=== PATIENT | male | born 1980 | race Caucasian/White ===

== ENCOUNTER 2017-02-19 16:47 | Emergency (ER) | payer OTHER ==
[~2017-02-19] VITALS: Ht 167.6 cm; Wt 84.1 kg
[~2017-02-19 16:47] MED LIST: ACET-1311 PO; ATEN-173 PO; CALC0.5C PO; CALC667C PO; ENAL1TAB29 PO; FURO-85 PO; KETO2CRE14 TOP; ONDA4TAB9 PO; PANT40TA2 PO
[2017-02-19 16:56] VITALS: Ht 167.6 cm; Wt 84.1 kg
[2017-02-19] MEDS ORDERED: ONDANSETRON INJ 2 MG/ML 2 ML VIAL IV STA (17:14)
[2017-02-19] MEDS ORDERED: LORAZEPAM 2 MG/ML 1 ML VIAL IV STA (17:14)
[2017-02-19] MEDS ORDERED: SODIUM CHLORIDE 0.9% 1000ML 1,000 ML IV ONE (17:15)
[2017-02-19 17:39] LABS: HEMATOCRIT 25.2 % (42-52); IG% 0.8 %; LYMPH % 0.9 %; LYMPH ABS # 0.09 K/uL (1.2-3.4); MEAN CELL VOLUME 86.6 fL (80-100); MEAN CORPUSCULAR HEMOGLOBIN 29.2 pg (25-34); MEAN CORPUSCULAR HGB CONC 33.7 g/dl (32-36); MEAN PLATELET VOLUME 9.3 fL (7.4-10.4); MONO % 1.9 %; NEUT % 96.4 %; PLATELET COUNT 255 K/uL (130-400); RED BLOOD COUNT 2.91 M/uL (4.7-6.1); WHITE BLOOD COUNT 9.58 K/uL (4.8-10.8)
[2017-02-19] MEDS ORDERED: VLC450 PO (17:50)
[2017-02-19] MEDS ORDERED: MYCO250C26 PO (17:50)
[2017-02-19] MEDS ORDERED: TACR1CAP5 PO (17:50)
[2017-02-19] MEDS ORDERED: PRED-301 PO (17:50)
[2017-02-19] MEDS ORDERED: ASPI81TA28 PO (17:50)
[2017-02-19] MEDS ORDERED: PRLSR20 PO (17:50)
[2017-02-19] MEDS ORDERED: ONDA4TAB10 SL ×2 (17:50→18:55)
[2017-02-19] MEDS ORDERED: SULF400T7 PO (17:52)
[2017-02-19 17:56] LABS: ALT/SGPT 17 U/L (12-78); AST/SGOT 13 U/L (15-37); BLOOD UREA NITROGEN 21 mg/dl (7-18); BUN/CREATININE RATIO 13.3 (10-20); CALCIUM 8.4 mg/dl (8.5-10.1); CARBON DIOXIDE 26 mmol/L (21-32); CHLORIDE 105 mmol/L (98-107); CREATININE 1.56 mg/dl (0.60-1.40); GLUCOSE 159 mg/dl (70-99); POTASSIUM 4.3 mmol/L (3.5-5.1); SODIUM 135 mmol/L (136-145)
[2017-02-19 17:59] LABS: ALKALINE PHOSPHATASE 47 U/L (45-117)
[2017-02-19 18:08] LABS: URINE APPEARANCE CLEAR (CLEAR); URINE BILIRUBIN NEG (NEG); URINE COLOR YELLOW; URINE EPITHELIAL CELL AUTO 0-5 /lpf (0-5); URINE NITRITE NEG (NEG); URINE PH 7.5 (4.5-7.5); UROBILINOGEN NEG (NEG)
[2017-02-19 18:29] LABS: MANUAL MICROSCOPIC REQUIRED? NO; REVIEW REQ? NO
[2017-02-19 19:15] VITALS: BP 128/78; PULSE 98; TEMP 36.7; O2SAT 100
[2017-02-19] MEDS ORDERED: CITA10TA4 PO (19:25)
[2017-02-19] MEDS ORDERED: OXYC1TAB3 PO (19:25)
[2017-02-19] MEDS ORDERED: DOCU-94 PO (19:25)
[2017-02-19] MEDS ORDERED: ZNTT/150 PO (19:25)
[2017-02-19] MEDS ORDERED: LPT/20 PO (19:25)
[2017-02-19 19:44] LABS: ANISOCYTOSIS PRESENT; COMPLETE YES; HYPERSEGMENTED POLYS 1+; POLYCHROMASIA 1+
--- NOTE | 2017-02-19 19:57 | EMERGENCY ROOM VISIT NOTE ---
ED Visit Note First contact with patient: 17:01 Chief Complaint: Chills, nausea and diarrhea. History of Present Illness: Mr. Trevizo is a 36-year-old male who ambulates into the ED accompanied by his complaining of chills, nausea and diarrhea. Historically patient is 5 days status post kidney transplant from [facility]. Patient reports over the last few hours he has become nauseated but has not vomited, he has been having chills/body shakes and he has had 2 episodes of soft stools. Additionally his reports he's been very anxious. Patient reports his symptoms started acutely. He has not taken any medications for his symptoms prior to arrival at the hospital except for his anxiety which she took Celexa. He has not identified any aggravating or alleviating factors related to the symptoms. He denies any associated fevers, skin eruptions, skin color changes, chest pain , shortness of breath, decreased appetite, bloody stools, watery stools. Review of Systems: As noted above in history of present illness. All body systems were reviewed and found to be negative as noted above. Past Medical History: As noted above, hypertension, anxiety and depression. Current Medications: OxyIR, Colace, Celexa, Lipitor, Zantac, Allopurinol, Prograf, CellCept, prednisone, aspirin, Diflucan, Bactrim, Prilosec, Valcyte. Allergies to Medications: Patient denies. Social History: Patient is currently on disability; he feels safe in his home environment; in the past he used tobacco; he denies alcohol use. Physical Examination: Vital Signs: Date Time Temp Pulse Resp B/P (MAP) Pulse Ox O2 Delivery O2 Flow Rate FiO2 02/19/17 19:15 36.7 98 16 128/78 100 02/19/17 16:56 36.7 105 18 132/82 98 Room Air GENERAL: 36-year-old male in mild to moderate distress due to symptoms, nontoxic -appearing, afebrile and hemodynamically stable. NEUROLOGICAL: Awake, alert and oriented to person, place and time. Answering questions appropriately and following commands. Normal gait. Good hand eye coordination. SKIN: Warm, dry and pink. Abdomen: Surgical scar is clean dry and intact. No drainage or signs of infection. HEENT: Atraumatic and normocephalic. PERRLA. Sclera white and conjunctiva pink. Airway is patent. Speech normal. Trachea midline. No jugular venous distention. THORAX: Lungs sounds are clear to auscultation and equal bilaterally with symmetrical chest wall. No wheezing, rales or rhonchi. HEART: Regular rate and rhythm. No gallops, rubs or murmurs are appreciated. ABDOMEN: Flat, soft and nontender. Mild incisional tenderness. Decreased bowel sounds in all quadrants. No guarding, rigidity or organomegaly. EXTREMITIES: Moves all extremities well on command and with purpose. All distal neurovascular statuses are intact and equal bilaterally. Surgical stockings in place. ED Course: Patient is assessed as noted above. Patient's medication list was reviewed. Laboratory Testing: Test 02/19/17 17:25 02/19/17 17:32 Range/Units White Blood Count 9.58 4.8-10.8 K/uL Red Blood Count 2.91 4.7-6.1 M/uL Hemoglobin 8.5 14.0-18.0 g/dL Hematocrit 25.2 42-52 % Mean Corpuscular Volume 86.6 80-100 fL Mean Corpuscular Hemoglobin 29.2 25-34 pg Mean Corpuscular Hemoglobin Concent 33.7 32-36 g/dl Platelet Count 255 130-400 K/uL Mean Platelet Volume 9.3 7.4-10.4 fL Neutrophils (%) (Auto) 96.4 % Lymphocytes (%) (Auto) 0.9 % Monocytes (%) (Auto) 1.9 % Eosinophils (%) (Auto) 0.0 % Basophils (%) (Auto) 0.0 % Neutrophils # (Auto) 9.23 1.4-6.5 K/uL Lymphocytes # (Auto) 0.09 1.2-3.4 K/uL Monocytes # (Auto) 0.18 0.11-0.59 K/uL Eosinophils # (Auto) 0.00 0-0.5 K/uL Basophils # (Auto) 0.00 0-0.2 K/uL RDW Standard Deviation 42.1 36.4-46.3 fL RDW Coefficient of Variation 13.3 11.5-14.5 % Immature Granulocyte % (Auto) 0.8 % Immature Granulocyte # (Auto) 0.08 0.00-0.02 K/uL Hypersegmented Polys 1+ Polychromasia 1+ Anisocytosis PRESENT Sodium Level 135 136-145 mmol/L Potassium Level 4.3 3.5-5.1 mmol/L Chloride Level 105 98-107 mmol/L Carbon Dioxide Level 26 21-32 mmol/L Anion Gap 4.0 3-11 mmol/L Blood Urea Nitrogen 21 7-18 mg/dl Creatinine 1.56 0.60-1.40 mg/dl Est Creatinine Clear Calc Drug Dose 65.3 ml/min Estimated GFR () 64.4 Estimated GFR (Non- 55.5 BUN/Creatinine Ratio 13.3 10-20 Random Glucose 159 70-99 mg/dl Calcium Level 8.4 8.5-10.1 mg/dl Total Bilirubin 0.3 0.2-1 mg/dl Direct Bilirubin < 0.1 0-0.2 mg/dl Aspartate Amino Transf (AST/SGOT) 13 15-37 U/L Alanine Aminotransferase (ALT/SGPT) 17 12-78 U/L Alkaline Phosphatase 47 45-117 U/L Total Protein 6.5 6.4-8.2 gm/dl Albumin 3.2 3.4-5.0 gm/dl Urine Color YELLOW Urine Appearance CLEAR CLEAR Urine pH 7.5 4.5-7.5 Urine Specific [place] 1.010 1.000-1.030 Urine Protein NEG NEG Urine Glucose (UA) TRACE NEG Urine Ketones NEG NEG Urine Occult Blood 1+ NEG Urine Nitrite NEG NEG Urine Bilirubin NEG NEG Urine Urobilinogen NEG NEG Urine Leukocyte Esterase TRACE NEG Urine WBC (Auto) 1-5 0-5 /hpf Urine RBC (Auto) 5-10 0-4 /hpf Urine Hyaline Casts (Auto) 0 0-5 /lpf Urine Epithelial Cells (Auto) 0-5 0-5 /lpf Urine Bacteria (Auto) NEG NEG Patient was initially hydrated with normal saline and received 4 mg of Zofran IV for his nausea and 0.5 mg of Ativan IV for his anxiety. Patient's case was reviewed with Dr. Natarajan; we agreed on diagnostic approach, treatment, disposition and plan. Patient's case was consulted with Ms. Halie Emanuel, [facility] Kidney Policy Director; she recommended follow-up tomorrow at [facility]. I did question if I could prescribe Zofran for his nausea and she agreed. Patient was educated about today's findings and instructed on her treatment plan ; he verbalized understanding and agreement with this plan. Additionally: It should be noted patient's primary language was Urdu and then on line translation service was used for patient's care. Clinical Impression: Nausea. Anemia. Status post kidney transplant. Decision-Making: Initially my differential diagnosis I considered postoperative infection, urinary tract infection, anxiety, postoperative bleeding and other causes. Disposition: Patient discharged home in stable condition accompanied by his ; prior to departure he was reassessed and subjectively reported he was feeling much better. He reported he was no longer nauseated and had no additional episodes of shaking/chills. Plan: Patient was encouraged to continue current medications as prescribed. Patient was prescribed Zofran 4 mg every 6 hours as needed for nausea/vomiting. Patient was encouraged to stay well-hydrated. Patient was encouraged to go to the kidney transplant clinic at [facility] tomorrow for follow-up care and treatment. Patient is encouraged return ED for worsening nausea, actual vomiting, fevers, worsening chills or any new/concerning symptoms.
[2017-02-19] MEDS ORDERED: ALLO100T PO (20:48)
== END 2017-02-19 19:16 | disposition home or self-care (01) ==
LOC: C.EDB 16:48 → C.EDC 19:16
DX: R11.0 Nausea (principal); D64.9 Anemia, unspecified; Z94.0 Kidney transplant status; I10 Essential (primary) hypertension; F41.9 Anxiety disorder, unspecified; F32.9 Major depressive disorder, single episode, unspecified; Z79.82 Long term (current) use of aspirin; Z79.899 Other long term (current) drug therapy; Z87.891 Personal history of nicotine dependence

== ENCOUNTER 2017-02-24 10:10 | Emergency (ER) | payer OTHER ==
[~2017-02-24] VITALS: Ht 167.6 cm; Wt 82.3 kg
[~2017-02-24 10:10] MED LIST changes: -ACET-1311 PO; +ALLO100T PO; +ASPI81TA28 PO; -ATEN-173 PO; -CALC0.5C PO; -CALC667C PO; +CITA10TA4 PO; +DOCU-94 PO; -ENAL1TAB29 PO; -FURO-85 PO; -KETO2CRE14 TOP; +LPT20 PO; +MYCO250C26 PO; +ONDA4TAB10 SL; -ONDA4TAB9 PO; +OXYC-90 PO; -PANT40TA2 PO; +PRED-301 PO; +PRLSR20 PO; +RANI150T85 PO; +SULF400T7 PO; +TACR1CAP5 PO; +VLC450 PO
[2017-02-24 10:16] VITALS: TEMP 37.5; Ht 167.6 cm; Wt 82.3 kg
--- NOTE | 2017-02-24 11:12 | EMERGENCY ROOM VISIT NOTE ---
History Report prepared by Lizzy: Deisy Collier Under the Supervision of: Dr. Wes Jacome M.D. First contact with patient: 10:56 Chief Complaint: ILLNESS Stated Complaint: COLD History of Present Illness The patient is a 36 year old male who presents to the Emergency Room with complaints of a cold beginning last night. Per his , the patient has had a productive cough but no fever. His states that one of the patient's daughters at home has the flu. Per his , the patient had a kidney transplant done in [place] on February 13. The patient reports that he has been able to make urine. His states that the patient took Robitussin for his cough. Source of History: patient, spouse/significant other () Onset: last night Position: other (global) Quality: other (cold) Associated Symptoms: + cough (productive), No fevers Review of Systems See HPI for pertinent positives & negatives. A total of 10 systems reviewed and were otherwise negative. Past Medical & Surgical Medical Problems: (1) Chest pain (2) HTN (hypertension) (3) Kidney disease, chronic, stage V (end stage, EGFR < 15 ml/min) Surgical Problems: (1) Kidney transplanted Family History Heart disease Social History Smoking Status: Never Smoker Marital Status: in relationship Housing Status: lives with family Occupation Status: disabled Current/Historical Medications Scheduled Allopurinol (Zyloprim), 200 MG PO DAILY Aspirin (Aspirin Ec), 81 MG PO DAILY Atorvastatin (Atorvastatin Calcium), 20 MG PO DAILY Citalopram Hydrobromide (Citalopram Hydrobromide), 10 MG PO DAILY Docusate Sodium (Colace), 100 MG PO BID Mycophenolate Mofetil (Cellcept), 1,000 MG PO BID Omeprazole (Prilosec), 20 MG PO DAILY Oseltamivir (Tamiflu), 75 MG PO BID Prednisone (Prednisone), 20 MG PO DAILY Sulfamethoxazole-Trimethoprim (Bactrim 400MG/80MG), 1 TAB PO 3XWK Tacrolimus (Prograf), 5 MG PO BID Valganciclovir (Valcyte), 450 MG PO DAILY Scheduled PRN Ondasetron Odt (Zofran Odt), 4 MG SL UD PRN for Nausea Ondasetron Odt (Zofran Odt), 4 MG SL Q6H PRN for Nausea or Vomiting Oxycodone Ir (Roxicodone Ir), 5 MG PO Q4H PRN for Pain Ranitidine (Zantac), 150 MG PO BID PRN for Heartburn Allergies Coded Allergies: No Known Allergies (Unverified , 04/04/15) Physical Exam Vital Signs Date Time Temp Pulse Resp B/P (MAP) Pulse Ox O2 Delivery O2 Flow Rate FiO2 02/24/17 14:39 94 17 125/86 100 02/24/17 13:31 137/81 02/24/17 13:15 99 13 99 Room Air 02/24/17 13:01 129/78 02/24/17 12:45 93 15 99 Room Air 02/24/17 12:40 91 12 100 Room Air 02/24/17 12:39 96 02/24/17 12:34 132/83 02/24/17 11:55 101 18 100/71 100 Room Air 02/24/17 10:16 37.5 119 18 101/78 100 Room Air Physical Exam GENERAL: Patient is in no acute distress. HEENT: No acute trauma, normocephalic atraumatic, mucous membranes moist, no nasal congestion, no scleral icterus. No throat erythema or exudate. NECK: No stridor, no adenopathy, no meningismus, trachea is midline. LUNGS: Clear to auscultation bilaterally, no wheeze, no rhonchi, breath sounds equal. HEART: Mildly tachycardic, no murmurs, normal rhythm. ABDOMEN: Soft, nontender, bowel sounds positive, no hernias, no peritonitis. Surgical incision is healing well without signs of infection. EXTREMITIES: No cyanosis or edema, full range of motion of all the joints without pain or difficulty, no signs for acute trauma. NEUROLOGIC: Oriented x 3, no acute motor or sensory deficits, no focal weakness. SKIN: No rash, no jaundice, no diaphoresis. Medical Decision & Procedures ER Provider Diagnostic Interpretation: Radiology results as stated below per my review and radiologist interpretation: CHEST ONE VIEW PORTABLE CLINICAL HISTORY: Fever, sepsis COMPARISON STUDY: October 25, 2015 FINDINGS: The cardiac and mediastinal contours are normal. There is no focal pulmonary consolidation. There is no failure. There is no pleural effusion. The left-sided double lumen central venous catheter has been removed.[ IMPRESSION: No active disease in the chest. Electronically signed by: Etienne Cordero M.D. 02/24/2017 11:53 AM Dictated Date/Time: 02/24/2017 11:52 AM Laboratory Results 02/24/17 11:37 Red Blood Count 2.94, Mean Corpuscular Volume 89.1, Mean Corpuscular Hemoglobin 28.9, Mean Corpuscular Hemoglobin Concent 32.4, Mean Platelet Volume 8.7, Neutrophils (%) (Auto) 95.2, Lymphocytes (%) (Auto) 1.7, Monocytes (%) (Auto) 1.9, Eosinophils (%) (Auto) 0.1, Basophils (%) (Auto) 0.1, Neutrophils # (Auto) 14.86, Lymphocytes # (Auto) 0.26, Monocytes # (Auto) 0.30, Eosinophils # (Auto) 0.01, Basophils # (Auto) 0.01 02/24/17 11:37 Test 02/24/17 11:37 02/24/17 11:50 02/24/17 13:08 White Blood Count 15.60 K/uL (4.8-10.8) Red Blood Count 2.94 M/uL (4.7-6.1) Hemoglobin 8.5 g/dL (14.0-18.0) Hematocrit 26.2 % (42-52) Mean Corpuscular Volume 89.1 fL (80-100) Mean Corpuscular Hemoglobin 28.9 pg (25-34) Mean Corpuscular Hemoglobin Concent 32.4 g/dl (32-36) Platelet Count 436 K/uL (130-400) Mean Platelet Volume 8.7 fL (7.4-10.4) Neutrophils (%) (Auto) 95.2 % Lymphocytes (%) (Auto) 1.7 % Monocytes (%) (Auto) 1.9 % Eosinophils (%) (Auto) 0.1 % Basophils (%) (Auto) 0.1 % Neutrophils # (Auto) 14.86 K/uL (1.4-6.5) Lymphocytes # (Auto) 0.26 K/uL (1.2-3.4) Monocytes # (Auto) 0.30 K/uL (0.11-0.59) Eosinophils # (Auto) 0.01 K/uL (0-0.5) Basophils # (Auto) 0.01 K/uL (0-0.2) RDW Standard Deviation 47.7 fL (36.4-46.3) RDW Coefficient of Variation 14.9 % (11.5-14.5) Immature Granulocyte % (Auto) 1.0 % Immature Granulocyte # (Auto) 0.16 K/uL (0.00-0.02) Nucleated RBC Absolute Count (auto) 0.02 K/uL (0-0) Nucleated Red Blood Cells % 0.2 % Anion Gap 7.0 mmol/L (3-11) Est Creatinine Clear Calc Drug Dose 61.5 ml/min Estimated GFR () 60.6 Estimated GFR (Non- 52.3 BUN/Creatinine Ratio 12.8 (10-20) Calcium Level 8.4 mg/dl (8.5-10.1) Total Bilirubin 0.4 mg/dl (0.2-1) Aspartate Amino Transf (AST/SGOT) 8 U/L (15-37) Alanine Aminotransferase (ALT/SGPT) 14 U/L (12-78) Alkaline Phosphatase 53 U/L (45-117) Total Protein 6.5 gm/dl (6.4-8.2) Albumin 3.3 gm/dl (3.4-5.0) Globulin 3.2 gm/dl (2.5-4.0) Albumin/Globulin Ratio 1.0 (0.9-2) Lactic Acid Level 1.1 mmol/L (0.4-2.0) Influenza Type A (RT-PCR) POS for Influ A (NEG) Influenza Type B (RT-PCR) Neg for Influ B (NEG) Laboratory results reviewed by me. Medications Administered Medications (Trade) Dose Ordered Sig/Beny Route Start Time Stop Time Status Last Admin Dose Admin Acetaminophen (Tylenol Tab) 1,000 mg NOW STAT PO 02/24/17 11:26 02/24/17 11:28 DC 02/24/17 11:46 1,000 MG Sodium Chloride 500 ml @ 999 mls/hr Q31M STAT IV 02/24/17 11:26 02/24/17 11:56 DC 02/24/17 11:37 999 MLS/HR Sodium Chloride 500 ml @ 999 mls/hr Q31M STAT IV 02/24/17 12:34 02/24/17 13:04 DC 02/24/17 12:41 999 MLS/HR Oseltamivir Phosphate (Tamiflu Cap) 75 mg NOW STAT PO 02/24/17 13:02 02/24/17 13:03 DC 02/24/17 13:23 75 MG Sodium Chloride 500 ml @ 999 mls/hr Q31M STAT IV 02/24/17 13:49 02/24/17 14:19 DC 02/24/17 13:55 999 MLS/HR ECG Indication: weakness Rate (beats per minute): 88 Rhythm: normal sinus Findings: no acute ischemic change, no ectopy ED Course 1120: The patient was evaluated in room B11B. A complete history and physical exam was performed. 1126: Ordered Sodium Chloride 500 ml @ 999 mls/hr IV, Tylenol Tab 1,000 mg PO. 1230: The patient had a coughing episode then passed out. An ECG was then taken. 1259: I spoke to Dr. Malcolm. He stated that Tamiflu would be fine for the patient and that he can go home if he continues to do well. If not, the patient can stay at our facility. 1302: Ordered Tamiflu Cap 75 mg PO. 1349: Ordered Sodium Chloride 500 ml @ 999 mls/hr IV. 1420: Reevaluated the patient. Discussed results and discharge instructions: He verbalized understanding and agreement. I did talk with the patient about potentially staying in the hospital but he states that he feels well enough to go home. The patient is ready for discharge. Medical Decision The patient is a 36 year old male who presents to the ED with complaints of cold symptoms. Differential diagnoses considered include pneumonia or bronchitis, influenza or flu-like illness, renal failure, immunocompromise, UTI , and sepsis. There is a moderate leukocytosis at 15,000, this could be consistent with infection. The patient is anemic but this is baseline looking back at previous testing. There is some mild renal insufficiency, this is baseline though looking back at previous testing. There was no significant electrolyte abnormality or hepatitis. Chest film did not show pneumonia or CHF. Influenza testing was positive. The patient presents with cough and congestion. He has no urinary complaints- he has been making an adequate amount of urine. He received IV saline, oral Tylenol and oral Tamiflu. The patient had an episode where he was coughing and passed out. An EKG was done after the syncopal spell showing a normal sinus rhythm, no ischemia or dysrhythmia. I suspect he suffered cough syncope. The patient looks well, he feels improved since being hydrated. I talked with the transplant center at [facility]. They felt the patient could be discharged. Tamiflu will be prescribed. The patient was encouraged to stay hydrated and to rest. If he is worsening, he should return for reassessment. I did discuss a hospital stay with him, he does not want to be hospitalized. Medication Reconcilliation Current Medication List: was personally reviewed by me Blood Pressure Screening Patient's blood pressure: Normal blood pressure Consults Time Called: 1230 Consulting Physician: Dr. Malcolm-Transplant Physician Returned Call: [phone] Malcolm. He stated that Tamiflu would be fine for the patient and that he can go home if he continues to do well. If not, the patient can stay at our facility. Impression Primary Impression: Tachycardia Additional Impressions: Dehydration Influenza Renal transplant, status post Scribe Attestation The scribe's documentation has been prepared under my direction and personally reviewed by me in its entirety. I confirm that the note above accurately reflects all work, treatment, procedures, and medical decision making performed by me. Departure Information Dispostion Home / Self-Care Prescriptions Oseltamivir (Tamiflu) 75 Mg Cap 75 MG PO BID, #10 CAP Prov: Wes Jacome M.D. 02/24/17 Referrals Patricia Henriquez D.O. (PCP) Forms HOME CARE DOCUMENTATION FORM, IMPORTANT VISIT INFORMATION, WORK / SCHOOL INSTRUCTIONS Patient Instructions My [facility] Additional Instructions fluids rest tylenol for fever and aches tamiflu 2x per day for 5 days return for worsening symptoms as we discussed Problem Qualifiers
[2017-02-24] MEDS ORDERED: SODIUM CHLORIDE 0.9% 500ML 500 ML IV STA ×3 (11:26→13:49)
[2017-02-24] MEDS ORDERED: ACETAMINOPHEN 500 MG TAB PO STA (11:26)
--- NOTE | 2017-02-24 11:54 | DIAGNOSTIC IMAGING REPORT ---
CHEST ONE VIEW PORTABLE CLINICAL HISTORY: Fever, sepsis COMPARISON STUDY: October 25, 2015 FINDINGS: The cardiac and mediastinal contours are normal. There is no focal pulmonary consolidation. There is no failure. There is no pleural effusion. The left-sided double lumen central venous catheter has been removed.[ IMPRESSION: No active disease in the chest. Electronically signed by: Etienne Cordero M.D. 02/24/2017 11:53 AM Dictated Date/Time: 02/24/2017 11:52 AM
[2017-02-24 11:55] LABS: BASO % 0.1 %; BASO ABS # 0.01 K/uL (0-0.2); EOS % 0.1 %; EOS ABS # 0.01 K/uL (0-0.5); HEMATOCRIT 26.2 % (42-52); HEMOGLOBIN 8.5 g/dL (14.0-18.0); IG# 0.16 K/uL (0.00-0.02); LYMPH % 1.7 %; LYMPH ABS # 0.26 K/uL (1.2-3.4); MEAN CELL VOLUME 89.1 fL (80-100); MEAN CORPUSCULAR HEMOGLOBIN 28.9 pg (25-34); MEAN CORPUSCULAR HGB CONC 32.4 g/dl (32-36); MEAN PLATELET VOLUME 8.7 fL (7.4-10.4); MONO % 1.9 %; NEUT % 95.2 %; NEUT ABS # 14.86 K/uL (1.4-6.5); NUCLEATED RED BLOOD CELL ABS 0.02 K/uL (0-0); PLATELET COUNT 436 K/uL (130-400); RED CELL DISTRIBUTION WIDTH CV 14.9 % (11.5-14.5); RED CELL DISTRIBUTION WIDTH SD 47.7 fL (36.4-46.3)
[2017-02-24 12:07] LABS: ALBUMIN 3.3 gm/dl (3.4-5.0); CALCIUM 8.4 mg/dl (8.5-10.1); CREATININE 1.64 mg/dl (0.60-1.40); POTASSIUM 3.8 mmol/L (3.5-5.1)
[2017-02-24 12:10] LABS: TOTAL PROTEIN 6.5 gm/dl (6.4-8.2)
[2017-02-24] MEDS ORDERED: OSELTAMIVIR PHOSPHATE 75 MG CAP PO STA (13:02)
[2017-02-24 13:54] LABS: INFLUENZA A PCR POS for Influ A (NEG)
[2017-02-24 13:56] LABS: INFLUENZA B PCR Neg for Influ B (NEG)
[2017-02-24] MEDS ORDERED: OSEL75CA12 PO (14:15)
[2017-02-24 14:39] VITALS: BP 125/86; PULSE 94; O2SAT 100
[2017-06-02] MEDS ORDERED: AMLO5TAB3 PO (22:29)
== END 2017-02-24 14:40 | disposition home or self-care (01) ==
LOC: C.EDB 10:12
DX: J11.1 Influenza due to unidentified influenza virus with other respiratory manifestations (principal); R00.0 Tachycardia, unspecified; I10 Essential (primary) hypertension; E86.0 Dehydration; Z94.0 Kidney transplant status; Z79.82 Long term (current) use of aspirin; Z79.899 Other long term (current) drug therapy; D64.9 Anemia, unspecified

== ENCOUNTER 2017-06-02 21:19 | Emergency (ER) | payer OTHER ==
[~2017-06-02] VITALS: Ht 167.6 cm; Wt 85.6 kg
[~2017-06-02 21:19] MED LIST changes: +OSEL75CA12 PO; -OXYC-90 PO; +OXYC1TAB3 PO
[2017-06-02 21:22] VITALS: TEMP 36.6; Ht 167.6 cm; Wt 85.6 kg
[2017-06-02] MEDS ORDERED: ACETAMINOPHEN 500 MG TAB PO STA (21:44)
[2017-06-02 22:04] VITALS: O2SAT 97
[2017-06-02 22:09] LABS: HEMATOCRIT 44.8 % (42-52); HEMOGLOBIN 13.6 g/dL (14.0-18.0); MEAN CELL VOLUME 87.5 fL (80-100); MEAN CORPUSCULAR HEMOGLOBIN 26.6 pg (25-34); MEAN CORPUSCULAR HGB CONC 30.4 g/dl (32-36); MEAN PLATELET VOLUME 9.7 fL (7.4-10.4); PLATELET COUNT 303 K/uL (130-400); RED CELL DISTRIBUTION WIDTH CV 12.7 % (11.5-14.5); RED CELL DISTRIBUTION WIDTH SD 40.6 fL (36.4-46.3); WHITE BLOOD COUNT 2.49 K/uL (4.8-10.8)
--- NOTE | 2017-06-02 22:21 | DIAGNOSTIC IMAGING REPORT ---
SINGLE VIEW CHEST CLINICAL HISTORY: Atypical chest pain. FINDINGS: An AP, portable, upright chest radiograph is compared to study dated 02/24/2017. The examination is degraded by portable technique and apical lordotic positioning. The cardiomediastinal silhouette is unremarkable. The lungs and pleural spaces are clear. No pneumothorax is seen. The bony thorax is grossly intact. IMPRESSION: No active disease in the chest. Electronically signed by: Wes Siddiqui M.D. 06/02/2017 10:20 PM Dictated Date/Time: 06/02/2017 10:19 PM
[2017-06-02 22:24] LABS: INR 1.1 (0.9-1.1); PTT PATIENT 26.8 SECONDS (21.0-31.0)
[2017-06-02 22:26] LABS: ALBUMIN 3.8 gm/dl (3.4-5.0); ALT/SGPT 23 U/L (12-78); BLOOD UREA NITROGEN 20 mg/dl (7-18); CALCIUM 8.2 mg/dl (8.5-10.1); CARBON DIOXIDE 26 mmol/L (21-32); GLUCOSE 95 mg/dl (70-99); LIPASE 129 U/L (73-393); POTASSIUM 3.6 mmol/L (3.5-5.1); SODIUM 140 mmol/L (136-145)
[2017-06-02] MEDS ORDERED: TACR1TAB2 PO (22:29)
[2017-06-02] MEDS ORDERED: AMLO-110 PO (22:29)
[2017-06-02] MEDS ORDERED: MYCO500T5 PO (22:29)
[2017-06-02] MEDS ORDERED: SLWMEC PO (22:29)
[2017-06-02] MEDS ORDERED: EFF75 PO (22:29)
[2017-06-02] MEDS ORDERED: CARV25TA2 PO (22:29)
[2017-06-02] MEDS ORDERED: ALPR0.25 PO (22:29)
[2017-06-02] MEDS ORDERED: TACR200T PO (22:29)
[2017-06-02 22:31] LABS: ALKALINE PHOSPHATASE 95 U/L (45-117); AST/SGOT 19 U/L (15-37)
--- NOTE | 2017-06-03 00:36 | EMERGENCY ROOM VISIT NOTE ---
History First contact with patient: 21:26 Chief Complaint: CARDIAC ASSESSMENT Stated Complaint: CHEST PAIN Nursing Triage Summary: Chest pain since yesterday worse with movement and better with rest. "when I take a deep breath in it hurts through shoulders". Renal transplant three months ago with no problems with that. History of Present Illness The patient is a 36 year old male who presents to the Emergency Room with complaints of left-sided chest pain described as discomfort, ranging in severity 6 out of 10 that is worse with movement and better with rest. Patient states he has discomfort when he takes of breath. Patient had renal transplant 3 months ago. He does not smoke. No recent travel. No family history of personal history of blood clots. No prior heart disease. Patient had a stress test last year that was normal per patient. Patient denies exertional chest pain, diaphoresis, nausea, vomiting, diarrhea, back pain, abdominal pain, leg pain or swelling. Review of Systems An 10 system review of systems was completed with positives and pertinent negatives listed in the HPI. Past Medical/Surgical History Medical Problems: (1) Chest pain (2) HTN (hypertension) (3) Kidney disease, chronic, stage V (end stage, EGFR < 15 ml/min) Surgical Problems: (1) Kidney transplanted Hyperlipidemia Family History Heart disease Social History Smoking Status: Never Smoker Smokeless Tobacco Use: No Alcohol Use: none Drug Use: none Marital Status: , in relationship Housing Status: lives with family Occupation Status: disabled Current/Historical Medications Scheduled Allopurinol (Zyloprim), 200 MG PO DAILY Amlodipine (Norvasc), 10 MG PO HS Aspirin (Aspirin Ec), 81 MG PO DAILY Atorvastatin (Lipitor), 20 MG PO DAILY Carvedilol (Coreg), 25 MG PO BIDM Docusate Sodium (Colace), 100 MG PO BID Magnesium Chloride (Slow-Mag Tab), 128 MG PO QAM Mycophenolate Mofetil (Mycophenolate Mofetil), 1,000 MG PO Q12 Omeprazole (Prilosec), 20 MG PO DAILY Sulfamethoxazole-Trimethoprim (Bactrim 400MG/80MG), 1 TAB PO 3XWK Tacrolimus (Envarsus Xr), 2 MG PO DAILY Tacrolimus (Envarsus Xr), 12 MG PO DAILY Valganciclovir (Valcyte), 450 MG PO BID Venlafaxine Hcl (Effexor), 75 MG PO DAILY Scheduled PRN Alprazolam (Xanax), 0.25 MG PO BID PRN for Anxiety/Agitation Ondasetron Odt (Zofran Odt), 4 MG SL UD PRN for Nausea Ranitidine (Zantac), 150 MG PO BID PRN for Heartburn Physical Exam Vital Signs Date Time Temp Pulse Resp B/P (MAP) Pulse Ox O2 Delivery O2 Flow Rate FiO2 06/03/17 00:00 77 16 132/82 98 Room Air 06/02/17 22:59 76 16 131/86 97 Room Air 06/02/17 22:04 97 Room Air 06/02/17 22:04 97 Room Air 06/02/17 21:45 79 06/02/17 21:38 98 Room Air 06/02/17 21:22 36.6 78 16 149/91 98 Room Air Physical Exam VITALS: Vitals are noted on the nurse's note and reviewed by myself. 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 SKIN: The skin was without rashes, erythema, edema, or bruising. There is no tenting of the skin. Capillary reflex less than 2 seconds. HEAD: Normocephalic atraumatic. EARS: External auditory canals clear, tympanic membranes pearly rosas without erythema or effusion bilaterally. EYES: Pupils equal round and reactive to light and accommodation. Conjunctivae without injection, sclerae without icterus. Extraocular movements intact. NOSE: Patent, turbinates without inflammation or discharge. MOUTH: Mucous membranes moist. Pharynx without erythema or exudate. Uvula midline. Airway patent. Tongue does not deviate. NECK: Supple without nuchal rigidity. No lymphadenopathy. No thyromegaly. Cervical spine is nontender. No JVD. HEART: Regular rate and rhythm without murmurs gallops or rubs. Chest nontender to palpation. LUNGS: Clear to auscultation bilaterally without wheezes, rales or rhonchi. No retractions or accessory muscle use. ABDOMEN: Positive bowel sounds x 4. Normal tympanic percussion. Soft, nontender, without masses or organomegaly. Guillen sign negative. No guarding or rebound tenderness. No CVA tenderness MUSCULOSKELETAL: No muscle atrophy, erythema, or edema noted. NEURO: Patient was alert and oriented to person place and time. Normal sensation to light and sharp touch. No focal neurological deficits. Medical Decision & Procedures Laboratory Results 06/02/17 21:55 Red Blood Count 5.12, Mean Corpuscular Volume 87.5, Mean Corpuscular Hemoglobin 26.6, Mean Corpuscular Hemoglobin Concent 30.4, Mean Platelet Volume 9.7 06/02/17 21:55 Test 06/02/17 21:55 06/02/17 23:51 White Blood Count 2.49 K/uL (4.8-10.8) Red Blood Count 5.12 M/uL (4.7-6.1) Hemoglobin 13.6 g/dL (14.0-18.0) Hematocrit 44.8 % (42-52) Mean Corpuscular Volume 87.5 fL (80-100) Mean Corpuscular Hemoglobin 26.6 pg (25-34) Mean Corpuscular Hemoglobin Concent 30.4 g/dl (32-36) Platelet Count 303 K/uL (130-400) Mean Platelet Volume 9.7 fL (7.4-10.4) RDW Standard Deviation 40.6 fL (36.4-46.3) RDW Coefficient of Variation 12.7 % (11.5-14.5) Neutrophils % (Manual) 70.2 % Lymphocytes % (Manual) 3.5 % Variant Lymphocytes % (manual) 11.4 % Monocytes % (Manual) 6.1 % Eosinophils % (Manual) 0.9 % Basophils % (Manual) 2.6 % (0-2) Metamyelocytes % 1.8 % Myelocytes % 3.5 % Neutrophils # (Manual) 1.75 K/uL (1.4-6.5) Total Absolute Neutrophils 1.75 K/uL (1.4-6.5) Lymphocytes # (Manual) 0.09 K/uL (1.2-3.4) Absolute Variant Lymphocytes 0.28 K/uL Total Absolute Lymphocytes 0.37 K/uL (1.2-3.4) Monocytes # (Manual) 0.15 K/uL (0.11-0.59) Eosinophils # (Manual) 0.02 K/uL (0-0.5) Basophils # (Manual) 0.06 K/uL (0-0.2) Metamyelocytes # 0.04 K/uL (0-0) Myelocytes # 0.09 K/uL (0-0) Hyposegmented Neutrophils 1+ Hypogranular Neutrophils 1+ Dohle Bodies 1+ Prothrombin Time 11.5 SECONDS (9.0-12.0) Prothromb Time International Ratio 1.1 (0.9-1.1) Activated Partial Thromboplast Time 26.8 SECONDS (21.0-31.0) Partial Thromboplastin Ratio 1.0 D-Dimer 270 ug/L FEU (0-500) Anion Gap 9.0 mmol/L (3-11) Est Creatinine Clear Calc Drug Dose 68.5 ml/min Estimated GFR () 67.5 Estimated GFR (Non- 58.2 BUN/Creatinine Ratio 13.1 (10-20) Calcium Level 8.2 mg/dl (8.5-10.1) Total Bilirubin 0.2 mg/dl (0.2-1) Direct Bilirubin < 0.1 mg/dl (0-0.2) Aspartate Amino Transf (AST/SGOT) 19 U/L (15-37) Alanine Aminotransferase (ALT/SGPT) 23 U/L (12-78) Alkaline Phosphatase 95 U/L (45-117) Total Protein 7.0 gm/dl (6.4-8.2) Albumin 3.8 gm/dl (3.4-5.0) Lipase 129 U/L (73-393) Troponin I < 0.015 ng/ml (0-0.045) Medications Administered Medications (Trade) Dose Ordered Sig/Beny Route Start Time Stop Time Status Last Admin Dose Admin Acetaminophen (Tylenol Tab) 1,000 mg NOW STAT PO 06/02/17 21:44 06/02/17 21:45 DC 06/02/17 21:44 1,000 MG ED Course Prior records/ancillary studies reviewed. Triage Nursing notes reviewed. Additional history obtained from family The patient's history was concerning for chest pain. Differential diagnosis: Etiologies such as cardiac ischemia, aortic dissection, pulmonary embolism, pneumonia, pneumothorax, musculoskeletal, infections, pericarditis, myocarditis , esophageal rupture, gastrointestinal, as well as others were entertained. Physical examination: As above. ER treatment provided: Tylenol On reassessment the patient felt better. Diagnostic interpretation by me: The electrocardiogram was negative for pathologic change. Normal sinus, normal intervals, no acute ST-T wave changes. Impression normal sinus rhythm interpreted by myself The labs revealed 2 negative troponins that are greater than 2 hours apart. Negative d-dimer Stable H&H. Creatinine 1.5 stable per chart review and verification with the patient Imaging studies: Chest x-ray with no acute consolidation, pneumothorax or free of my interpretation HEART SCORE: Hx: high/mod/low suspicion: 0 ECG: ST depression/nonspecific changes/normal: 0 Age: Greater than 65/45-64/less than 45: 0 Risk factors: (Hypertension, hyperlipidemia, diabetes, coronary disease, tobacco use, cocaine use): 2 Troponin: Greater than 2 times normal limits/1-2 times normal limits/normal: 0 Total: 2 Symptoms of DVT 3pt: 0 Alternative diagnoses better explains illness 3pts: 0 Tachycardia greater than 100 1.5 pts 0 Immobilization greater than 3 days or surgery in the previous 4 weeks 1.5 pts: 0 Prior history of DVT or PE 1.5 pts: 0 Presence of hemoptysis 1pt: 0 Presence of malignancy 1pt: 0 (Score greater than 6 is high probability, score 2-6 moderate probability, score less than 2 low probability) Total: 0 Exam and history seem consistent with chest pain, most likely muscle skeletal in nature. Symptoms are reproducible. It was worse with movement. Patient had 2 negative troponins greater than 2 hours apart. Heart score was 2. Well score was 0. Normal EKG. patient was advised to follow-up family care for further evaluation and workup for his chest pain tonight and also for his abnormal differential on the CBC. Patient was advised to return to the ER immediately for chest pain, difficulty breathing, worsening signs or symptoms or as needed. By the evaluation outlined above emergent etiologies such as cardiac ischemia, aortic dissection, pulmonary embolism, pneumonia, pneumothorax, infections, pericarditis, myocarditis, gastrointestinal, as well as others were deemed relatively unlikely. The pt informed about the findings as listed above. All questions were answered and pleased with the treatment. Return instructions were outlined and the patient was discharged in stable condition. Referral: The patient was referred back to primary care physician for follow-up in 2 to 3 days for a recheck of the current condition. Case reviewed with my attending The chart was completed utilizing [employer] voice recognition software. Grammatical errors, random word insertions, pronoun errors, and incomplete sentences are an occassional consequence of this system due to software limitations, ambient noise, and hardware issues. Any formal questions or concerns about the content, text, or information contained within the body of this dictation should be directly addressed to the physician retail loan originator assistant for clarification. Medical Decision As above Medication Reconcilliation Current Medication List: was personally reviewed by me Blood Pressure Screening Patient's blood pressure: Elevated blood pressure Blood pressure disposition: Elevated BP felt to be situational Impression Primary Impression: Chest pain in adult Departure Information Dispostion Home / Self-Care Condition GOOD Referrals Patricia Henriquez D.O. (PCP) Patient Instructions My [facility] Additional Instructions Your CBC differential was slightly abnormal. Follow-up with your family care doctor this week for repeat testing and further workup if warranted. Acetaminophen(Tylenol) may be used for fever or pain. Use 1000mg every six hours as needed. Avoid using more than 3000mg in a 24 hour period. Rest and drink plenty of fluids as tolerated. Continue current medications. Avoid strenuous activities and anything that worsens your pain. Resume normal activities once your symptoms resolve. Return to the ER immediately for worsening or persistent chest pain, abdominal pain, vomiting, fevers, chest pains, difficulty breathing, worsening of your condition, or as needed. Follow up with your primary physician in 2-3 days for a recheck of your current condition.
[2017-06-03 00:37] VITALS: BP 127/81; PULSE 73; O2SAT 97
== END 2017-06-03 00:40 | disposition home or self-care (01) ==
LOC: C.EDB 21:20 → C.EDC 06-03 00:40
DX: R07.9 Chest pain, unspecified (principal); I10 Essential (primary) hypertension; N18.4 Chronic kidney disease, stage 4 (severe); Z82.49 Family history of ischemic heart disease and other diseases of the circulatory system; Z79.82 Long term (current) use of aspirin

== ENCOUNTER 2017-07-26 20:39 | Emergency (ER) | payer OTHER ==
[~2017-07-26] VITALS: Ht 167.6 cm; Wt 85.9 kg
[~2017-07-26 20:39] MED LIST changes: +ALPR0.25 PO; +AMLO-110 PO; +CARV25TA2 PO; -CITA10TA4 PO; +EFF75 PO; -MYCO250C26 PO; +MYCO500T5 PO; -OSEL75CA12 PO; -OXYC1TAB3 PO; -PRED-301 PO; +SLWMEC PO; -TACR1CAP5 PO; +TACR1TAB2 PO; +TACR200T PO
[2017-07-26 20:46] VITALS: TEMP 36.8; Ht 167.6 cm; Wt 85.9 kg
--- NOTE | 2017-07-26 21:07 | EMERGENCY ROOM VISIT NOTE ---
History Report prepared by Lizzy: Clifford Galvez Under the Supervision of: Dr. Chicho Sanchez M.D. First contact with patient: 20:53 Chief Complaint: UNABLE TO VOID Stated Complaint: KIDNEY TRANS 5 MONTHS, PROB URINATING History of Present Illness The patient is a 37 year old male who presents to the Emergency Room with complaints of the constant inability to urinate beginning two days. The patient states that he has been having a frequent urge to urinate. He notes that despite having the urge to urinate, he is only able to urinate a little. He reports that he gets up frequently at night to urinate. The patient also complains of lower abdominal pain. The patient states that he only feels lower abdominal pain when he needs to urinate. He notes that he had a right kidney transplant done five months ago because it was only working at 19%. He reports that he takes about 8-9 different medications following his transplant. The patient states that he still has his appendix and gallbladder and has a history of hypertension. Source of History: patient Onset: two days ago Position: abdomen Quality: other (inability to urinate) Timing: constant Associated Symptoms: + abdominal pain Note: The patient states that he has a frequent urge to urinate. Review of Systems See HPI for pertinent positives & negatives. A total of 10 systems reviewed and were otherwise negative. Past Medical & Surgical Medical Problems: (1) Chest pain (2) HTN (hypertension) (3) Kidney disease, chronic, stage V (end stage, EGFR < 15 ml/min) Surgical Problems: (1) Kidney transplanted Family History Diabetes mellitus Heart disease Hypertension Social History Smoking Status: Never Smoker Alcohol Use: none Drug Use: none Marital Status: single Housing Status: lives with family Occupation Status: disabled Current/Historical Medications Scheduled Allopurinol (Zyloprim), 200 MG PO DAILY Amlodipine (Norvasc), 10 MG PO HS Aspirin (Aspirin Ec), 81 MG PO DAILY Atorvastatin (Lipitor), 20 MG PO DAILY Carvedilol (Coreg), 25 MG PO BIDM Ciprofloxacin Hcl (Cipro), 1 TAB PO BID Docusate Sodium (Colace), 100 MG PO BID Magnesium Chloride (Slow-Mag Tab), 128 MG PO QAM Mycophenolate Mofetil (Mycophenolate Mofetil), 1,000 MG PO Q12 Omeprazole (Prilosec), 20 MG PO DAILY Sulfamethoxazole-Trimethoprim (Bactrim 400MG/80MG), 1 TAB PO 3XWK Tacrolimus (Envarsus Xr), 2 MG PO DAILY Tacrolimus (Envarsus Xr), 12 MG PO DAILY Tamsulosin Hcl (Flomax), 0.4 MG PO DAILY Valganciclovir (Valcyte), 450 MG PO BID Venlafaxine Hcl (Effexor), 75 MG PO DAILY Scheduled PRN Alprazolam (Xanax), 0.25 MG PO BID PRN for Anxiety/Agitation Ondasetron Odt (Zofran Odt), 4 MG SL UD PRN for Nausea Ranitidine (Zantac), 150 MG PO BID PRN for Heartburn Allergies Coded Allergies: No Known Allergies (Unverified , 07/26/17) Physical Exam Vital Signs Date Time Temp Pulse Resp B/P (MAP) Pulse Ox O2 Delivery O2 Flow Rate FiO2 07/26/17 22:51 89 16 130/81 98 Room Air 07/26/17 20:46 36.8 83 18 135/78 98 Room Air Physical Exam GENERAL: Awake, alert, well-appearing, in no acute distress HENT: Normocephalic, atraumatic. Oropharynx unremarkable. EYES: Normal conjunctiva. Sclera non-icteric. NECK: Supple. No nuchal rigidity. FROM. No JVD. RESPIRATORY: Clear to auscultation. CARDIAC: Regular rate, normal rhythm. Extremities warm and well perfused. Pulses equal. ABDOMEN: Soft, non-distended. No tenderness to palpation. No rebound or guarding. No masses. RECTAL: Deferred. MUSCULOSKELETAL: Chest examination reveals no tenderness. The back is symmetrical on inspection without obvious abnormality. There is no CVA tenderness to palpation. No joint edema. LOWER EXTREMITIES: Calves are equal size bilaterally and non-tender. No edema. No discoloration. NEURO: Normal sensorium. No sensory or motor deficits noted. SKIN: No rash or jaundice noted. Medical Decision & Procedures ER Provider Diagnostic Interpretation: Radiology results as stated below per my review and radiologist interpretation: RENAL TRANSPLANT ULTRASOUND FINDINGS: Both [place] kidneys are atrophic. A right lower quadrant renal allograft measures 10.8 cm in maximal dimension. There is no graft hydronephrosis. There is mild dilatation of the transplant ureter. No perigraft fluid collections are present. Segmental waveforms within the renal transplant are unremarkable. Resistive indices are within normal limits. The transplant artery and vein are patent. The peak systolic velocity within the right iliac artery proximal to the anastomosis is 199 cm/s. There are abnormally increased velocities within the transplant artery with possible color aliasing. Maximal velocity within the transplant artery is 441 cm/s. IMPRESSION: 1. Elevated velocities within the right lower quadrant renal allograft artery with possible color aliasing. These findings raise the possibility of a anastomotic stenosis. However, resistive indices within the segmental vessels are within normal limits and segmental waveforms are unremarkable. Correlation with prior transplant ultrasound is recommended as well as correlation with transplant function. Short-term sonographic follow up is recommended. 2. Patent transplant artery and vein. 3. No graft hydronephrosis. Electronically signed by: Ellis Tanner M.D. 07/26/2017 11:08 PM Laboratory Results 07/26/17 21:23 Red Blood Count 4.59, Mean Corpuscular Volume 86.7, Mean Corpuscular Hemoglobin 28.1, Mean Corpuscular Hemoglobin Concent 32.4, Mean Platelet Volume 9.5, Neutrophils (%) (Auto) 77.1, Lymphocytes (%) (Auto) 8.9, Monocytes (%) (Auto) 7.1, Eosinophils (%) (Auto) 1.6, Basophils (%) (Auto) 0.3, Neutrophils # (Auto) 2.94, Lymphocytes # (Auto) 0.34, Monocytes # (Auto) 0.27, Eosinophils # (Auto) 0.06, Basophils # (Auto) 0.01 07/26/17 21:23 Test 07/26/17 21:13 07/26/17 21:23 Urine Color YELLOW Urine Appearance CLEAR (CLEAR) Urine pH 7.0 (4.5-7.5) Urine Specific [place] 1.017 (1.000-1.030) Urine Protein NEG (NEG) Urine Glucose (UA) NEG (NEG) Urine Ketones NEG (NEG) Urine Occult Blood NEG (NEG) Urine Nitrite NEG (NEG) Urine Bilirubin NEG (NEG) Urine Urobilinogen NEG (NEG) Urine Leukocyte Esterase NEG (NEG) White Blood Count 3.81 K/uL (4.8-10.8) Red Blood Count 4.59 M/uL (4.7-6.1) Hemoglobin 12.9 g/dL (14.0-18.0) Hematocrit 39.8 % (42-52) Mean Corpuscular Volume 86.7 fL (80-100) Mean Corpuscular Hemoglobin 28.1 pg (25-34) Mean Corpuscular Hemoglobin Concent 32.4 g/dl (32-36) Platelet Count 319 K/uL (130-400) Mean Platelet Volume 9.5 fL (7.4-10.4) Neutrophils (%) (Auto) 77.1 % Lymphocytes (%) (Auto) 8.9 % Monocytes (%) (Auto) 7.1 % Eosinophils (%) (Auto) 1.6 % Basophils (%) (Auto) 0.3 % Neutrophils # (Auto) 2.94 K/uL (1.4-6.5) Lymphocytes # (Auto) 0.34 K/uL (1.2-3.4) Monocytes # (Auto) 0.27 K/uL (0.11-0.59) Eosinophils # (Auto) 0.06 K/uL (0-0.5) Basophils # (Auto) 0.01 K/uL (0-0.2) RDW Standard Deviation 44.2 fL (36.4-46.3) RDW Coefficient of Variation 14.1 % (11.5-14.5) Immature Granulocyte % (Auto) 5.0 % Immature Granulocyte # (Auto) 0.19 K/uL (0.00-0.02) Anion Gap 6.0 mmol/L (3-11) Est Creatinine Clear Calc Drug Dose 57.9 ml/min Estimated GFR () 55.2 Estimated GFR (Non- 47.7 BUN/Creatinine Ratio 9.6 (10-20) Calcium Level 8.9 mg/dl (8.5-10.1) Total Bilirubin 0.3 mg/dl (0.2-1) Direct Bilirubin 0.1 mg/dl (0-0.2) Aspartate Amino Transf (AST/SGOT) 19 U/L (15-37) Alanine Aminotransferase (ALT/SGPT) 18 U/L (12-78) Alkaline Phosphatase 107 U/L (45-117) Total Protein 7.7 gm/dl (6.4-8.2) Albumin 4.2 gm/dl (3.4-5.0) Lipase 99 U/L (73-393) Labs reviewed by ED physician. Medications Administered Medications (Trade) Dose Ordered Sig/Beny Route Start Time Stop Time Status Last Admin Dose Admin Sodium Chloride 500 ml @ 999 mls/hr Q31M STAT IV 07/26/17 22:05 07/26/17 22:35 DC 07/26/17 22:51 999 MLS/HR Ciprofloxacin (Cipro Tab) 500 mg NOW STAT PO 07/26/17 23:06 07/26/17 23:08 DC 07/26/17 23:20 500 MG Tamsulosin HCl (Flomax Cap) 0.4 mg NOW STAT PO 07/26/17 23:06 07/26/17 23:08 DC 07/26/17 23:21 0.4 MG ED Course 2054: Past medical records reviewed. The patient was evaluated in room A9. A complete history and physical examination was performed. 2242: I tried to call the phlebotomy program coordinator at the number provided by the patients . There was no answer. 2304: I discussed the patients case with Halie Zarco who is the patients phlebotomy program coordinator. She recommends making sure that the patients US is normal. She recommends starting the patient on Cipro and Flomax. She also recommends a Dyson, which the patient refuses. She would like for us to get the patient an appointment with urology. The patient will follow up this week. 2333: Upon reexamination the patient is stable. I discussed results and treatment plan with the patient. He verbalizes agreement and understanding. The patient is ready for discharge. Medical Decision Differential diagnosis: Etiologies such as appendicitis, diverticulitis, PUD, biliary pathology, UTI, pancreatitis, obstruction, mesenteric ischemia, aortic pathology, infections, inflammatory bowel disease, renal colic, as well as others were entertained. This is a 37-year-old male who presents the emergency department complaining of frequency of urinating as well as not urinating a large amount. This is been ongoing for the past 2 days. The patient was sent for an ultrasound of the renal transplant. This appears to be a chronic finding however nothing is acute. His creatinine is bumped up to 1.76 and for this I started patient on normal saline bolus. I strongly recommended a Dyson to the patient however he is refusing. I discussed all my findings with the renal phlebotomy program coordinator felt that the patient needed short-term follow-up. She will arrange this. She also asked that the patient have follow-up with urology here. In the meantime she did agree with trialing the patient on Flomax as well as an antibiotic for his prostate. I will note while in the emergency department the patient had 2 normal voiding trials and is actually already feeling better. Based on this I feel he can be safely discharged home. Patient and were in agreement with the treatment plan. Medication Reconcilliation Current Medication List: was personally reviewed by me Blood Pressure Screening Patient's blood pressure: Elevated blood pressure Blood pressure disposition: Elevated BP felt to be situational Impression Primary Impression: Dehydration Scribe Attestation The scribe's documentation has been prepared under my direction and personally reviewed by me in its entirety. I confirm that the note above accurately reflects all work, treatment, procedures, and medical decision making performed by me. Departure Information Dispostion Home / Self-Care Prescriptions Ciprofloxacin Hcl (CIPRO) 500 Mg Tab 1 TAB PO BID for 10 Days, #20 TAB Prov: Chicho Sanchez MD 07/26/17 Tamsulosin Hcl (FLOMAX) 0.4 Mg Cap 0.4 MG PO DAILY for 30 Days, #30 CAP Prov: Chicho Sanchez MD 07/26/17 Referrals Patricia Henriquez D.O. (PCP) Forms HOME CARE DOCUMENTATION FORM, IMPORTANT VISIT INFORMATION, WORK / SCHOOL INSTRUCTIONS Patient Instructions My [facility] Additional Instructions Increase fluids next 48 hours Follow up with Halie Zarco Follow up with Dr Collier (Urology) Culture results are usually available in approx 48 hours You have been examined and treated today on an emergency basis only. This is not a substitute for, or an effort to provide, complete comprehensive medical care. It is impossible to recognize and treat all injuries or illnesses in a single emergency department visit. It is therefore important that you follow up closely with Dr Henriquez. Call as soon as possible for an appointment. Thank you for your time and consideration. I look forward to speaking with you again soon. Please don't hesitate to call us if you have any questions.
[2017-07-26 21:37] LABS: BASO % 0.3 %; BASO ABS # 0.01 K/uL (0-0.2); EOS % 1.6 %; EOS ABS # 0.06 K/uL (0-0.5); HEMATOCRIT 39.8 % (42-52); HEMOGLOBIN 12.9 g/dL (14.0-18.0); IG# 0.19 K/uL (0.00-0.02); LYMPH % 8.9 %; LYMPH ABS # 0.34 K/uL (1.2-3.4); MEAN CELL VOLUME 86.7 fL (80-100); MEAN CORPUSCULAR HEMOGLOBIN 28.1 pg (25-34); MEAN CORPUSCULAR HGB CONC 32.4 g/dl (32-36); MEAN PLATELET VOLUME 9.5 fL (7.4-10.4); MONO % 7.1 %; MONO ABS # 0.27 K/uL (0.11-0.59); NEUT % 77.1 %; NEUT ABS # 2.94 K/uL (1.4-6.5); PLATELET COUNT 319 K/uL (130-400); RED CELL DISTRIBUTION WIDTH CV 14.1 % (11.5-14.5); RED CELL DISTRIBUTION WIDTH SD 44.2 fL (36.4-46.3); WHITE BLOOD COUNT 3.81 K/uL (4.8-10.8)
[2017-07-26 22:03] LABS: ALBUMIN 4.2 gm/dl (3.4-5.0); CALCIUM 8.9 mg/dl (8.5-10.1); CREATININE 1.76 mg/dl (0.60-1.40); TOTAL PROTEIN 7.7 gm/dl (6.4-8.2)
[2017-07-26] MEDS ORDERED: SODIUM CHLORIDE 0.9% 500ML 500 ML IV STA (22:05)
[2017-07-26] MEDS ORDERED: TAMSULOSIN HCL 0.4 MG CAP PO STA (23:06)
[2017-07-26] MEDS ORDERED: CIPROFLOXACIN 500 MG TAB PO STA (23:06)
--- NOTE | 2017-07-26 23:10 | DIAGNOSTIC IMAGING REPORT ---
RENAL TRANSPLANT ULTRASOUND CLINICAL HISTORY: Right flank pain. COMPARISON STUDY: CT of the abdomen and pelvis November 08, 2014. TECHNIQUE: Grayscale and color and duplex Doppler sonography of the right lower quadrant renal allograft was performed. FINDINGS: Both [place] kidneys are atrophic. A right lower quadrant renal allograft measures 10.8 cm in maximal dimension. There is no graft hydronephrosis. There is mild dilatation of the transplant ureter. No perigraft fluid collections are present. Segmental waveforms within the renal transplant are unremarkable. Resistive indices are within normal limits. The transplant artery and vein are patent. The peak systolic velocity within the right iliac artery proximal to the anastomosis is 199 cm/s. There are abnormally increased velocities within the transplant artery with possible color aliasing. Maximal velocity within the transplant artery is 441 cm/s. IMPRESSION: 1. Elevated velocities within the right lower quadrant renal allograft artery with possible color aliasing. These findings raise the possibility of a anastomotic stenosis. However, resistive indices within the segmental vessels are within normal limits and segmental waveforms are unremarkable. Correlation with prior transplant ultrasound is recommended as well as correlation with transplant function. Short-term sonographic follow up is recommended. 2. Patent transplant artery and vein. 3. No graft hydronephrosis. Electronically signed by: Ellis Tanner M.D. 07/26/2017 11:08 PM Dictated Date/Time: 07/26/2017 11:00 PM
[2017-07-26] MEDS ORDERED: TAMS0.4C38 PO (23:30)
[2017-07-26] MEDS ORDERED: CIPR-255 PO (23:30)
[2017-07-26 23:57] VITALS: BP 130/85; PULSE 77; O2SAT 98
[2017-07-30 08:59] LABS: FK506 TACROLIMUS HIGHLY SENS 10.5 MCG/L (5-20)
== END 2017-07-26 23:58 | disposition home or self-care (01) ==
LOC: C.EDB 20:41 → C.EDA 23:58
DX: E86.0 Dehydration (principal); I10 Essential (primary) hypertension; N18.4 Chronic kidney disease, stage 4 (severe); Z79.82 Long term (current) use of aspirin

== ENCOUNTER 2017-10-23 19:16 | Emergency (ER) | payer OTHER ==
[~2017-10-23] VITALS: Ht 167.6 cm; Wt 83.6 kg
[~2017-10-23 19:16] MED LIST changes: -AMLO-110 PO; +AMLO5TAB3 PO; +CIPR-255 PO
[2017-10-23 19:18] VITALS: TEMP 37.1; Ht 167.6 cm; Wt 83.6 kg
[2017-10-23] MEDS ORDERED: SODIUM CHLORIDE 0.9% 1000ML 1,000 ML IV STA (20:04)
[2017-10-23] MEDS ORDERED: ONDANSETRON INJ 2 MG/ML 2 ML VIAL IV STA (20:04)
[2017-10-23] MEDS ORDERED: ALUMINUM/MAGNESIUM/SIMETH (MAALOX MAX) 30 ML UDC PO STA (20:04)
--- NOTE | 2017-10-23 20:06 | EMERGENCY ROOM VISIT NOTE ---
History Report prepared by Lizzy: Lupe Rivers Under the Supervision of: Dr. Peter Menon M.D. First contact with patient: 19:54 Chief Complaint: ABDOMINAL PAIN Stated Complaint: NAUSEA, VOMIT, DIZZY, KIDNEY TRANSPLANT 7M AGO History of Present Illness The patient is a 37 year old male who presents to the Emergency Room with complaints of intermittent nausea and abdominal discomfort beginning 2 days ago. Manager [employer] service was utilized. Patient reports he has dull abdominal pain that does not radiate to his chest or back. He states he is also experiencing fatigue and "a lot of gas". He notes a kidney transplant 7 months ago. The patient states he has never experienced this pain before. He denies pain on deep breath, fever, or diarrhea, and notes he is drinking and making urine as usual. He denies recent falls or trauma. The patient notes Zantac did not improve his symptoms. He notes he takes his transplant medications as instructed. Source of History: patient Onset: 2 days ago Position: abdomen Quality: dull, other (naseua, abdominal discomfort) Timing: intermittent Modifying Factors (Relieving): other (not relieved by Zantac) Associated Symptoms: + fatigue, No fevers, No vomiting, No back pain, No diarrhea Note: Associated symptom: "a lot of gas" Review of Systems See HPI for pertinent positives and negatives. A total of ten systems were reviewed and were otherwise negative. Past Medical & Surgical Medical Problems: (1) Chest pain (2) HTN (hypertension) (3) Kidney disease, chronic, stage V (end stage, EGFR < 15 ml/min) Surgical Problems: (1) Kidney transplanted Family History Diabetes mellitus Heart disease Hypertension Social History Smoking Status: Never Smoker Alcohol Use: none Drug Use: none Marital Status: single Housing Status: lives with family Occupation Status: disabled Current/Historical Medications Scheduled Allopurinol (Zyloprim), 200 MG PO DAILY Amlodipine (Norvasc), 10 MG PO HS Aspirin (Aspirin Ec), 81 MG PO DAILY Atorvastatin (Lipitor), 20 MG PO DAILY Carvedilol (Coreg), 25 MG PO BIDM Ciprofloxacin Hcl (Cipro), 1 TAB PO BID Docusate Sodium (Colace), 100 MG PO BID Magnesium Chloride (Slow-Mag Tab), 128 MG PO QAM Mycophenolate Mofetil (Mycophenolate Mofetil), 1,000 MG PO Q12 Omeprazole (Prilosec), 20 MG PO DAILY Ondasetron Odt (Zofran Odt), 4 MG SL Q6H Ranitidine (Zantac), 150 MG PO BID Sulfamethoxazole-Trimethoprim (Bactrim 400MG/80MG), 1 TAB PO 3XWK Tacrolimus (Envarsus Xr), 2 MG PO DAILY Tacrolimus (Envarsus Xr), 12 MG PO DAILY Valganciclovir (Valcyte), 450 MG PO BID Venlafaxine Hcl (Effexor), 75 MG PO DAILY Scheduled PRN Alprazolam (Xanax), 0.25 MG PO BID PRN for Anxiety/Agitation Ondasetron Odt (Zofran Odt), 4 MG SL UD PRN for Nausea Ranitidine (Zantac), 150 MG PO BID PRN for Heartburn Allergies Coded Allergies: No Known Allergies (Unverified , 08/01/17) Physical Exam Vital Signs Date Time Temp Pulse Resp B/P (MAP) Pulse Ox O2 Delivery O2 Flow Rate FiO2 10/23/17 22:45 64 18 132/74 99 10/23/17 21:10 64 16 138/75 99 Room Air 10/23/17 19:18 37.1 69 18 145/88 99 Room Air Physical Exam GENERAL: Awake, alert, well-appearing, in no distress HENT: Normocephalic, atraumatic. Oropharynx unremarkable. EYES: Normal conjunctiva. Sclera non-icteric. NECK: Supple. No nuchal rigidity. RESPIRATORY: Clear to auscultation. No wheezes. Normal respiratory effort. CARDIAC: Normal rate. Normal rhythm. Extremities warm and well perfused. GI: Soft, non-distended. minimal deep epigastric pain to palpation, no tenderness over RLQ renal transplant. No rebound or guarding. No masses. RECTAL: Deferred. MUSCULOSKELETAL: Atraumatic. Chest examination reveals no tenderness. There is no CVA tenderness to palpation. LOWER EXTREMITIES: Calves are equal size bilaterally and non-tender. No edema NEURO: Normal sensorium. No sensory or motor deficits noted. No facial droop. SKIN: Warm and dry. No rash or jaundice noted. Medical Decision & Procedures ER Provider Diagnostic Interpretation: Radiology results as stated below per my review and radiologist interpretation: RENAL TRANSPLANT W/WO DUPL CLINICAL HISTORY: 37 years-old Male presenting with abdominal pain. TECHNIQUE: Real-time grayscale and color and spectral Doppler ultrasound imaging of the transplant kidney was performed. COMPARISON: 08/01/2017. FINDINGS: Right lower quadrant transplant kidney measures 11.5 cm. Normal echogenicity of renal parenchyma. No hydronephrosis. No urothelial thickening. No perinephric fluid collection. Symmetric perfusion of the upper and lower poles. However, a focus of aliasing on color Doppler is noted at the lower pole. At this site, spectral Doppler waveforms demonstrate a low resistance monophasic pattern with a peak systolic velocity of 215 cm/s and a resistive index of 0.3. There is a second similar though less prominent focus at the lower pole, which demonstrates a peak systolic velocity of 106 cm/s and resistive index of 0.37. Intrarenal resistive indices range from 0.54 to 0.61. Normal intrarenal arterial waveforms. Renal artery patent though there are increased velocities detected at the anastomosis with the right iliac artery. At this site, peak systolic velocity 436-587 cm/s within the transplant renal artery. More distally in the transplant renal artery, peak systolic velocity 209 cm/s in the midportion and 146 cm/s distally. Renal vein patent. Iliac vessels: Right iliac vein patent with normal waveforms. Left iliac artery proximal to the anastomosis patent with normal triphasic waveforms and peak systolic velocity of 140 cm/s. Bladder: Trace debris in the bladder, nonspecific. Reference ranges: Transplant renal artery stenosis: Renal artery velocity > 200 cm/s; velocity gradient across stenosis > 2:1; distal spectral broadening. Michael SA, Elijah SZH, Rin MA, et al. Complications of renal transplantation. Radiographics 2005; 25: 1286-3777. Transplant renal artery stenosis > 80% (in decreasing order of sensitivity): Renal artery PSV / interlobar artery PSV ratio >13; acceleration time greater than 0.06 seconds; renal artery PSV > 300 cm/s; resistive index less than 0.5. Ramiro A, Seani S, Aysha F, et al. Renal transplant vascular complications: the roll of Doppler ultrasound. J Ultrasound 2015; 18:101-107. IMPRESSION: 1. Findings again consistent with renal artery stenosis at the anastomosis, which is suspected to be greater than 80% stenosis given the renal artery PSV greater than 300 cm/s. 2. Two foci of low resistance high velocity waveforms in the lower pole of the transplant kidney suggests small arteriovenous fistulas. These may be postprocedural. Correlate with a history of biopsy. 3. Otherwise perfusion to the transplant kidney is maintained. Patent vasculature. 4. No hydronephrosis. Electronically signed by: Colby Mayfield M.D. 10/23/2017 9:53 PM Dictated Date/Time: 10/23/2017 9:44 PM CHEST ONE VIEW PORTABLE CLINICAL HISTORY: 37 years-old Male presenting with ABDOMINAL PAIN/GI. TECHNIQUE: Portable upright AP view of the chest was obtained. COMPARISON: 06/02/2017. FINDINGS: Cardiomediastinal silhouette normal. No focal opacity. No large effusion or pneumothorax. Osseous structures normal. Upper abdomen normal. IMPRESSION: 1. No acute cardiopulmonary disease. Electronically signed by: Colby Mayfield M.D. 10/23/2017 8:32 PM Dictated Date/Time: 10/23/2017 8:31 PM Laboratory Results 10/23/17 20:09 Red Blood Count 5.26, Mean Corpuscular Volume 85.4, Mean Corpuscular Hemoglobin 27.6, Mean Corpuscular Hemoglobin Concent 32.3, Mean Platelet Volume 9.5, Neutrophils (%) (Auto) 77.9, Lymphocytes (%) (Auto) 12.2, Monocytes (%) (Auto) 7.6, Eosinophils (%) (Auto) 0.7, Basophils (%) (Auto) 0.2, Neutrophils # (Auto) 4.42, Lymphocytes # (Auto) 0.69, Monocytes # (Auto) 0.43, Eosinophils # (Auto) 0.04, Basophils # (Auto) 0.01 10/23/17 20:09 Test 10/23/17 20:09 10/23/17 20:12 White Blood Count 5.67 K/uL (4.8-10.8) Red Blood Count 5.26 M/uL (4.7-6.1) Hemoglobin 14.5 g/dL (14.0-18.0) Hematocrit 44.9 % (42-52) Mean Corpuscular Volume 85.4 fL (80-100) Mean Corpuscular Hemoglobin 27.6 pg (25-34) Mean Corpuscular Hemoglobin Concent 32.3 g/dl (32-36) Platelet Count 298 K/uL (130-400) Mean Platelet Volume 9.5 fL (7.4-10.4) Neutrophils (%) (Auto) 77.9 % Lymphocytes (%) (Auto) 12.2 % Monocytes (%) (Auto) 7.6 % Eosinophils (%) (Auto) 0.7 % Basophils (%) (Auto) 0.2 % Neutrophils # (Auto) 4.42 K/uL (1.4-6.5) Lymphocytes # (Auto) 0.69 K/uL (1.2-3.4) Monocytes # (Auto) 0.43 K/uL (0.11-0.59) Eosinophils # (Auto) 0.04 K/uL (0-0.5) Basophils # (Auto) 0.01 K/uL (0-0.2) RDW Standard Deviation 39.8 fL (36.4-46.3) RDW Coefficient of Variation 12.7 % (11.5-14.5) Immature Granulocyte % (Auto) 1.4 % Immature Granulocyte # (Auto) 0.08 K/uL (0.00-0.02) Anion Gap 8.0 mmol/L (3-11) Est Creatinine Clear Calc Drug Dose 73.4 ml/min Estimated GFR () 74.8 Estimated GFR (Non- 64.5 BUN/Creatinine Ratio 12.2 (10-20) Calcium Level 8.7 mg/dl (8.5-10.1) Magnesium Level 1.6 mg/dl (1.8-2.4) Total Bilirubin 0.3 mg/dl (0.2-1) Direct Bilirubin 0.1 mg/dl (0-0.2) Aspartate Amino Transf (AST/SGOT) 15 U/L (15-37) Alanine Aminotransferase (ALT/SGPT) 17 U/L (12-78) Alkaline Phosphatase 124 U/L (45-117) Troponin I < 0.015 ng/ml (0-0.045) Total Protein 7.6 gm/dl (6.4-8.2) Albumin 3.9 gm/dl (3.4-5.0) Lipase 131 U/L (73-393) Urine Color YELLOW Urine Appearance CLEAR (CLEAR) Urine pH 7.0 (4.5-7.5) Urine Specific [place] 1.008 (1.000-1.030) Urine Protein NEG (NEG) Urine Glucose (UA) NEG (NEG) Urine Ketones NEG (NEG) Urine Occult Blood TRACE (NEG) Urine Nitrite NEG (NEG) Urine Bilirubin NEG (NEG) Urine Urobilinogen NEG (NEG) Urine Leukocyte Esterase NEG (NEG) Urine WBC (Auto) 0 /hpf (0-5) Urine RBC (Auto) 0-4 /hpf (0-4) Urine Hyaline Casts (Auto) 0 /lpf (0-5) Urine Epithelial Cells (Auto) 0-5 /lpf (0-5) Urine Bacteria (Auto) NEG (NEG) Laboratory results reviewed by me Medications Administered Medications (Trade) Dose Ordered Sig/Beny Route Start Time Stop Time Status Last Admin Dose Admin Sodium Chloride 1,000 ml @ 999 mls/hr Q1H1M STAT IV 10/23/17 20:04 10/23/17 21:04 DC 10/23/17 20:45 999 MLS/HR Ondansetron HCl (Zofran Inj) 4 mg NOW STAT IV 10/23/17 20:04 10/23/17 20:06 DC 10/23/17 20:45 4 MG Al Hydrox/Mg Hydrox/Simethicone (Maalox Max Susp) 30 ml NOW STAT PO 10/23/17 20:04 10/23/17 20:06 DC 10/23/17 20:44 30 ML ECG Per My Interpretation Indication: abdominal pain Rate (beats per minute): 69 Rhythm: normal sinus Findings: other (normal intervals. normal axis. no St segment elevation.) Comparison ECG Date: 06/02/17 Change: no significant change ED Course 1954: The patient was evaluated in room A4. A complete history and physical exam was performed. 2003: Ordered Maalox Max Susp 30 ml PO, Zofran Inj 4 mg IV, Sodium Chloride 1000 ml @ 999 mls/hr IV. 2238: I reevaluated the patient. Discussed results and discharge instructions: he verbalized understanding and agreement. The patient is ready for discharge. Medical Decision Differential diagnosis: Etiologies such as appendicitis, diverticulitis, PUD, biliary pathology, UTI, pancreatitis, obstruction, mesenteric ischemia, aortic pathology, infections, inflammatory bowel disease, renal colic, as well as others were entertained. Patient presents with weakness and epigastric discomfort over the last 2 days. Some nausea. No pain over the kidney transplant site. Making good urine. Basic labs are sent and renal ultrasound was completed. Already took some Zantac before coming in given some Zofran and fluids. No infectious symptomatologies. Laboratory studies are grossly unremarkable. Negative troponin. No leukocytosis. No evidence of hepatitis or pancreatitis. Slight hypomagnesemia. No evidence of acute graft dysfunction. Seems like this could be related to possibly some reflux symptoms; he is improved with Mylanta here. Doubt biliary dysfunction. Do not believe any abdominal imaging. Will start on a course of Zantac along with Zofran. Recommend outpatient follow-up. Discussed return precautions. Manager [employer] services used. Medication Reconcilliation Current Medication List: was personally reviewed by me Blood Pressure Screening Patient's blood pressure: Elevated blood pressure Blood pressure disposition: Elevated BP felt to be situational Impression Primary Impression: GERD (gastroesophageal reflux disease) Scribe Attestation The scribe's documentation has been prepared under my direction and personally reviewed by me in its entirety. I confirm that the note above accurately reflects all work, treatment, procedures, and medical decision making performed by me. Departure Information Dispostion Home / Self-Care Prescriptions Ondasetron Odt (ZOFRAN ODT) 4 Mg Tab 4 MG SL Q6H for Nausea, #12 TAB Prov: Peter Menon M.D. 10/23/17 Ranitidine (Zantac) 150 Mg Tab 150 MG PO BID for 14 Days, #28 TAB Prov: Peter Menon M.D. 10/23/17 Referrals No Doctor, Assigned (PCP) Forms Call Back Authorization, HOME CARE DOCUMENTATION FORM, IMPORTANT VISIT INFORMATION Patient Instructions My [facility] Additional Instructions Continue to stay well hydrated. Utilize Zantac daily to help with your symptoms in addition to Zofran as needed. Would recommend you follow-up with your doctor in the next week. If you have concerns or new symptoms including but not limited to fever, chills, or significant abdominal pain you may return here for reevaluation at any time. Problem Qualifiers Primary Impression: GERD (gastroesophageal reflux disease) Esophagitis presence: esophagitis presence not specified Qualified Codes: K21.9 - Gastro-esophageal reflux disease without esophagitis
[2017-10-23 20:17] LABS: BASO % 0.2 %; BASO ABS # 0.01 K/uL (0-0.2); EOS % 0.7 %; EOS ABS # 0.04 K/uL (0-0.5); HEMATOCRIT 44.9 % (42-52); HEMOGLOBIN 14.5 g/dL (14.0-18.0); IG# 0.08 K/uL (0.00-0.02); LYMPH % 12.2 %; LYMPH ABS # 0.69 K/uL (1.2-3.4); MEAN CELL VOLUME 85.4 fL (80-100); MEAN CORPUSCULAR HEMOGLOBIN 27.6 pg (25-34); MEAN CORPUSCULAR HGB CONC 32.3 g/dl (32-36); MEAN PLATELET VOLUME 9.5 fL (7.4-10.4); MONO % 7.6 %; MONO ABS # 0.43 K/uL (0.11-0.59); NEUT % 77.9 %; NEUT ABS # 4.42 K/uL (1.4-6.5); PLATELET COUNT 298 K/uL (130-400); RED CELL DISTRIBUTION WIDTH CV 12.7 % (11.5-14.5); RED CELL DISTRIBUTION WIDTH SD 39.8 fL (36.4-46.3); WHITE BLOOD COUNT 5.67 K/uL (4.8-10.8)
--- NOTE | 2017-10-23 20:34 | DIAGNOSTIC IMAGING REPORT ---
CHEST ONE VIEW PORTABLE CLINICAL HISTORY: 37 years-old Male presenting with ABDOMINAL PAIN/GI. TECHNIQUE: Portable upright AP view of the chest was obtained. COMPARISON: 06/02/2017. FINDINGS: Cardiomediastinal silhouette normal. No focal opacity. No large effusion or pneumothorax. Osseous structures normal. Upper abdomen normal. IMPRESSION: 1. No acute cardiopulmonary disease. Electronically signed by: Colby Mayfield M.D. 10/23/2017 8:32 PM Dictated Date/Time: 10/23/2017 8:31 PM
[2017-10-23 20:42] LABS: ALBUMIN 3.9 gm/dl (3.4-5.0); ALKALINE PHOSPHATASE 124 U/L (45-117); ALT/SGPT 17 U/L (12-78); AST/SGOT 15 U/L (15-37); BLOOD UREA NITROGEN 17 mg/dl (7-18); CALCIUM 8.7 mg/dl (8.5-10.1); CARBON DIOXIDE 26 mmol/L (21-32); CREATININE 1.37 mg/dl (0.60-1.40); GLUCOSE 102 mg/dl (70-99); LIPASE 131 U/L (73-393); POTASSIUM 3.9 mmol/L (3.5-5.1); SODIUM 141 mmol/L (136-145); TOTAL PROTEIN 7.6 gm/dl (6.4-8.2)
--- NOTE | 2017-10-23 21:54 | DIAGNOSTIC IMAGING REPORT ---
RENAL TRANSPLANT W/WO DUPL CLINICAL HISTORY: 37 years-old Male presenting with abdominal pain. TECHNIQUE: Real-time grayscale and color and spectral Doppler ultrasound imaging of the transplant kidney was performed. COMPARISON: 08/01/2017. FINDINGS: Right lower quadrant transplant kidney measures 11.5 cm. Normal echogenicity of renal parenchyma. No hydronephrosis. No urothelial thickening. No perinephric fluid collection. Symmetric perfusion of the upper and lower poles. However, a focus of aliasing on color Doppler is noted at the lower pole. At this site, spectral Doppler waveforms demonstrate a low resistance monophasic pattern with a peak systolic velocity of 215 cm/s and a resistive index of 0.3. There is a second similar though less prominent focus at the lower pole, which demonstrates a peak systolic velocity of 106 cm/s and resistive index of 0.37. Intrarenal resistive indices range from 0.54 to 0.61. Normal intrarenal arterial waveforms. Renal artery patent though there are increased velocities detected at the anastomosis with the right iliac artery. At this site, peak systolic velocity 436-587 cm/s within the transplant renal artery. More distally in the transplant renal artery, peak systolic velocity 209 cm/s in the midportion and 146 cm/s distally. Renal vein patent. Iliac vessels: Right iliac vein patent with normal waveforms. Left iliac artery proximal to the anastomosis patent with normal triphasic waveforms and peak systolic velocity of 140 cm/s. Bladder: Trace debris in the bladder, nonspecific. Reference ranges: Transplant renal artery stenosis: Renal artery velocity > 200 cm/s; velocity gradient across stenosis > 2:1; distal spectral broadening. Michael SA, Elijah SZH, Rin MA, et al. Complications of renal transplantation. Radiographics 2005; 25: 3857-7412. Transplant renal artery stenosis > 80% (in decreasing order of sensitivity): Renal artery PSV / interlobar artery PSV ratio >13; acceleration time greater than 0.06 seconds; renal artery PSV > 300 cm/s; resistive index less than 0.5. Ramiro A, Jose Angel S, Aysha F, et al. Renal transplant vascular complications: the roll of Doppler ultrasound. J Ultrasound 2015; 18:101-107. IMPRESSION: 1. Findings again consistent with renal artery stenosis at the anastomosis, which is suspected to be greater than 80% stenosis given the renal artery PSV greater than 300 cm/s. 2. Two foci of low resistance high velocity waveforms in the lower pole of the transplant kidney suggests small arteriovenous fistulas. These may be postprocedural. Correlate with a history of biopsy. 3. Otherwise perfusion to the transplant kidney is maintained. Patent vasculature. 4. No hydronephrosis. Electronically signed by: Colby Mayfield M.D. 10/23/2017 9:53 PM Dictated Date/Time: 10/23/2017 9:44 PM
[2017-10-23] MEDS ORDERED: ONDA4TAB10 SL (22:41)
[2017-10-23] MEDS ORDERED: RANI150T85 PO (22:41)
[2017-10-23 22:45] VITALS: BP 132/74; PULSE 64; O2SAT 99
[2017-10-26 07:07] LABS: FK506 TACROLIMUS HIGHLY SENS 9.8 MCG/L (5-20)
== END 2017-10-23 22:45 | disposition home or self-care (01) ==
LOC: C.EDB 19:17 → C.EDA 22:45
DX: K21.9 Gastro-esophageal reflux disease without esophagitis (principal); I12.0 Hypertensive chronic kidney disease with stage 5 chronic kidney disease or end stage renal disease; N18.5 Chronic kidney disease, stage 5; Z94.0 Kidney transplant status; Z79.82 Long term (current) use of aspirin; Z79.899 Other long term (current) drug therapy